=== PATIENT | male | born 1960 | race Caucasian/White ===

== ENCOUNTER 2022-02-08 09:05 | Emergency (ER) | payer OTHER ==
[~2022-02-08] VITALS: Ht 188 cm; Wt 98.0 kg
[2022-02-08 09:06] VITALS: BP 139/104
--- NOTE | 2022-02-08 09:13 | NUR ---
pt wheelchair assisted to bed 04 at this time
[2022-02-08] MEDS ORDERED: NACL 0.9% 1,000 ML IV SCH (09:15)
[2022-02-08] MEDS ORDERED: KETOROLAC 15 MG/ML VIAL IVP ONE (09:25)
--- NOTE | 2022-02-08 09:30 | NUR ---
61 y/o male bib self from home, c/o abdominal pain with diarrhea, subjective fevers and chills, decreased appetite for 1 week. pt has not tried any medications for the pain or diarrhea. states it started last Friday and it was worse initially in the first 4 days, states he needed to use the bathroom every 5 to 10 minutes with multiple episodes of yellow loose stools without blood. skin is pink/warm/dry. a&o x4 states he is unable to ambulate due to pain. lungs clear bl, heart rate even and regular. pt denies dysuria, hematuria, urinary frequency or retention, or anyone sick in the household with the same symptoms. pt denies any cp, sob, or cough at this time. pt states pain is 10/10 at this time. patient positioned for comfort. hob elevated. bed down. ermd made aware of pt. pmh: denies nka med: denies
--- NOTE | 2022-02-08 09:33 | NUR ---
labs collected from iv, dong and influenza swabbed at this time. given to phleb
--- NOTE | 2022-02-08 09:39 | NUR ---
pt taken to ct via wheelchair
[2022-02-08 09:42] LABS: BASOPHILS % (AUTO) 0.4 % (0.0-2.0); EOSINOPHILS % (AUTO) 0.4 % (0.0-4.0); HEMATOCRIT 44.9 % (36-52); HEMOGLOBIN 15.7 g/dL (12.0-18.0); LYMPHOCYTES # (AUTO) 1.5 K/uL (2.0-11.5); LYMPHOCYTES % (AUTO) 15.2 % (20.5-51.1); MEAN CORPUSCULAR HEMOGLOBIN 31 pg (27-31); MEAN CORPUSCULAR HGB CONC 35 g/dL (33-37); MEAN CORPUSCULAR VOLUME 87.3 fL (80-94); MONOCYTES # (AUTO) 1.1 K/uL (0.8-1.0); MONOCYTES % (AUTO) 11.7 % (1.7-9.3); NEUTROPHILS # (AUTO) 6.9 K/uL (1.8-7.7); NEUTROPHILS % (AUTO) 72.3 % (42.2-75.2); PLATELET COUNT (AUTO) 449 K/uL (140-450); RED BLOOD CELL COUNT(AUTO) 5.15 MIL/uL (4.20-6.10); RED CELL DISTRIBUTION WIDTH 13.4 % (11.6-13.7); WHITE BLOOD COUNT (AUTO) 9.6 K/uL (4.8-10.8)
[2022-02-08] MEDS ORDERED: BISMUTH SUBSALICYLATE 15 ML UDBTL PO STA (10:12)
[2022-02-08 10:13] LABS: ALBUMIN 2.6 g/dL (3.4-5.0); ANION GAP 11.5 (8-16); CARBON DIOXIDE 25.5 mmol/L (21-32); TOTAL BILIRUBIN 2.9 mg/dL (0.0-1.0)
[2022-02-08] MEDS ORDERED: LOPERAMIDE 2 MG CAP PO ONE (10:15)
[2022-02-08] MEDS ORDERED: NACL 0.9% 1,000 ML IV ONE (10:15)
[2022-02-08] MEDS ORDERED: AZITHROMYCIN 250 MG TAB PO ONE (10:15)
[2022-02-08] MEDS ORDERED: IMO2 PO (10:35)
[2022-02-08] MEDS ORDERED: [UNRECOGNIZED DRUG - CODE] PO (10:35)
[2022-02-08] MEDS ORDERED: POTASSIUM CHLORIDE 10 MEQ TABER PO ONE (10:45)
[2022-02-08 11:43] VITALS: BP 137/96
--- NOTE | 2022-02-08 11:43 | NUR ---
Patient discharged with v/s stable. Written and verbal after care instructions given and explained. Patient alert, oriented and verbalized understanding of instructions. Ambulatory with steady gait. All questions addressed prior to discharge. ID band removed. Patient advised to follow up with PMD. Rx of bismuth subsalicylate, loperamide (sent) given. Patient educated on indication of medication including possible reaction and side effects. Opportunity to ask questions provided and answered.
--- NOTE | 2022-02-08 11:46 | NUR ---
stool sample collected at this time
== END 2022-02-08 11:42 | disposition home or self-care (01) ==
LOC: MED 09:05
DX: K52.9 Noninfective gastroenteritis and colitis, unspecified (principal); Z20.822 Contact with and (suspected) exposure to COVID-19; R10.84 Generalized abdominal pain; E87.6 Hypokalemia; E87.1 Hypo-osmolality and hyponatremia; R74.01 Elevation of levels of liver transaminase levels; R03.0 Elevated blood-pressure reading, without diagnosis of hypertension
CPT/HCPCS: 36415; 74176; 80053; 82272; 83605; 83690; 85025; 87040; 87045; 87426; 87427; 87804; 89055; 96361; 96374; 99285; J1885; J7030

== ENCOUNTER 2023-05-31 13:51 | Emergency (ER) | payer OTHER ==
[~2023-05-31] VITALS: Ht 188 cm; Wt 99.8 kg
[~2023-05-31 13:51] MED LIST: IMO2 PO; [UNRECOGNIZED DRUG - CODE] PO
[2023-05-31 14:03] VITALS: BP 132/93; PULSE 95; RESP 14; TEMP 97.2; O2SAT 100
[2023-05-31] MEDS ORDERED: LIDOCAINE MPF 1% 10 MG/ML VIAL INJ ONE (14:35)
[2023-05-31] MEDS ORDERED: BACI-418 TP (15:27)
[2023-05-31] MEDS ORDERED: BACITRACIN OINT 500 UNITS/GM PKT TP ONE ×2 (15:36→15:40)
== END 2023-05-31 15:45 | disposition left against medical advice (07) ==
LOC: MED 13:51
DX: S61.215A Laceration without foreign body of left ring finger without damage to nail, initial encounter (principal); Z79.899 Other long term (current) drug therapy; W27.2XXA Contact with scissors, initial encounter; Y93.89 Activity, other specified; Y92.89 Other specified places as the place of occurrence of the external cause; Y99.8 Other external cause status
CPT/HCPCS: 12001; 99282